=== PATIENT | male | born 1975 ===

== ENCOUNTER 2017-07-21 17:44 | Inpatient (IN) | payer OTHER ==
[2017-07-21] MEDS ORDERED: Albuterol-Ipratrop 3 mg / 0.5 (3 ml) UD IH STA ×2 (18:07)
[2017-07-21 18:25] LABS: BASO # 0.02 K/mm3 (0.0-2.0); BASO % 0.2 % (0.0-3.0); EOS # 0.9 (0.0-0.7); GRAN # 5.82 (1.4-6.5); GRAN % 54.7 % (50.0-68.0); HEMOGLOBIN 16.4 g/dL (14.0-18.0); LYMPH # 3.3 (1.2-3.4); LYMPH % 31.3 % (22.0-35.0); MEAN CELL VOLUME 85.1 fl (80.0-105.0); MEAN CORPUSCULAR HEMOGLOBIN 29.7 pg (25.0-35.0); MEAN CORPUSCULAR HGB CONC 34.9 g/dl (31.0-37.0); MEAN PLATELET VOLUME 9.8 fl (7.0-11.0); MONO # 0.6 (0.1-0.6); MONO % 5.8 % (1.0-6.0); RBC 5.52 10^6/uL (3.5-6.1); WHITE BLOOD COUNT 10.6 10^3/ul (4.5-11.0)
[2017-07-21 18:34] LABS: D DIMER < 200 ng/mL (0-243); INR 1.05 (0.93-1.08); PARTIAL THROMBOPLASTIN TIME 31.5 Seconds (25.1-36.5)
[2017-07-21 18:46] LABS: B-TYPE NATRIURETIC PEPTIDE 29.4 pg/mL (0-450); TROPONIN I < 0.01 ng/mL
[2017-07-21] MEDS ORDERED: Magnesium Sulfate 2 GM in Sodium Chloride 0.9% 100 ML IVPB ONE (18:49)
[2017-07-21 18:50] LABS: ALB/GLOB RATIO 1.3 (1.1-1.8); ALBUMIN 4.9 g/dL (3.0-4.8); ALT/SGPT 43 U/L (7-56); AST/SGOT 37 U/L (17-59); BLOOD UREA NITROGEN 18 mg/dL (7-21); CALCIUM 9.8 mg/dL (8.4-10.5); GFR AFRICAN-AMERICAN > 60; GFR NON-AFRICAN AMERICAN > 60
[2017-07-21] MEDS ORDERED: Albuterol 0.083% Inhal Sol (2.5 mg/3 mL) UD IH STA ×2 (18:53)
[2017-07-21] MEDS ORDERED: Iodixanol 320 mg/ml 150 ml Bottle IV ONE ×2 (19:26→19:38)
[2017-07-21 19:47] LABS: ARTERIAL BLOOD GAS HCO3 18.6 mmol/L (21-28); ARTERIAL BLOOD GAS O2 SAT 98.2 % (95-98); ARTERIAL BLOOD GAS PCO2 33 mm/Hg (35-45); ARTERIAL BLOOD GAS PH 7.36 (7.35-7.45); ARTERIAL BLOOD GAS TCO2 19.6 mmol.L (22-28)
--- NOTE | 2017-07-21 21:01 | CT ---
EXAM: CT Angiography Chest With Intravenous Contrast CLINICAL HISTORY: 42 years old, male; Signs and symptoms; Shortness of breath; Additional info: Sob/ cp TECHNIQUE: Axial computed tomographic angiography images of the chest with intravenous contrast using pulmonary embolism protocol. All CT scans at this facility use one or more dose reduction techniques, viz.: automated exposure control; ma/kV adjustment per patient size (including targeted exams where dose is matched to indication; i.e. head); or iterative reconstruction technique. MIP reconstructed images were created and reviewed. Coronal and sagittal reformatted images were created and reviewed. CONTRAST: 120 mL of VISIPAQUE administered intravenously. COMPARISON: DX - CHEST PORTABLE 2017-07-21 18:09 FINDINGS: Limitations: Motion artifact - mild to moderate. Suboptimal timing of bolus. Pulmonary arteries: No definite filling defects within main, lobar, segmental branches. Suboptimal evaluation of subsegmental branches. Aorta: No aneurysm. No dissection. Lungs: Minimal atelectasis/scarring. No consolidation. Few subpleural nodules and/or scarring, up to 0.4 cm. Pleural space: No significant effusion. No pneumothorax. Heart: No cardiomegaly. No significant pericardial effusion. Bones/joints: No acute fracture. Soft tissues: Unremarkable. Lymph nodes: No pathologically enlarged lymph nodes. Liver: Fatty infiltration. IMPRESSION: 1. No definite pulmonary embolism. 2. Pulmonary nodules. For low-risk patients, no follow-up is necessary. For high-risk patients (smoking history or other known risk factors) an optional CT at 12 months could be performed. 3. Incidental/non-acute findings are described above.
[2017-07-21] MEDS ORDERED: cefTRIAXone 1 gm 1 GM/100 ML BAG IVPB STA (21:16)
[2017-07-21] MEDS ORDERED: Azithromycin 500MG/NS 250ml 500 MG/250 ML BAG IVPB STA (21:16)
--- NOTE | 2017-07-21 21:57 | ED PDOC ---
Arrival/HPI - General Chief Complaint: Shortness Of Breath Time Seen by Provider: 07/21/17 18:05 Historian: Patient - History of Present Illness Narrative History of Present Illness (Text): 07/21/17 21:55 42-year-old male presents today with shortness of breath. Patient states 2 weeks ago he was sick with cold symptoms was seen by a doctor was given albuterol treatment and antibiotics. Patient states he was feeling much better and just went on vacation on a cruise that left from [facility]. Patient states for the past few days he's been having a dry cough and feeling congestion in the chest. Patient states today he suddenly became extremely short of breath. Patient denies fevers or chills. Denies sick contacts at home. Patient describes a slight pressure sensation in the chest with worsening shortness of breath. Patient denies vomiting or diarrhea. No dizziness or weakness. No neck or back pain. No other complaints Symptom Onset: Gradual Symptom Course: Worsening Severity Level: 2, 3 Past Medical History - Provider Review Nursing Documentation Reviewed: Yes - Travel History Have you recently traveled outside w/in the past 3 mons?: No - Infectious Disease Hx of Infectious Diseases: None - Psychiatric Hx Substance Use: No - Anesthesia Hx Anesthesia: No Hx Anesthesia Reactions: No Family/Social History - Physician Review Nursing Documentation Reviewed: Yes Family/Social History: Unknown Family HX Smoking Status: Unknown If Ever Smoked Hx Alcohol Use: No Hx Substance Use: No Allergies/Home Meds Allergies/Adverse Reactions: Allergies No Known Allergies Allergy (Verified 07/21/17 17:57) Home Medications: Home Meds Medication Instructions Recorded Confirmed No Known Home Med 07/21/17 07/21/17 Review of Systems - Review of Systems Constitutional: absent: Fatigue, Fevers Respiratory: SOB, Cough, Wheezing Cardiovascular: Chest Pain. absent: Palpitations Gastrointestinal: absent: Abdominal Pain, Nausea, Vomiting Genitourinary Male: absent: Dysuria Musculoskeletal: absent: Arthralgias, Neck Pain Skin: absent: Rash, Pruritis Neurological: absent: Headache, Dizziness Psychiatric: absent: Anxiety, Depression Physical Exam Vital Signs Reviewed: Yes Vital Signs Temp Pulse Resp BP Pulse Ox 07/21/17 21:17 109 H 18 118/97 H 92 L 07/21/17 18:00 24 07/21/17 17:59 98.8 F 110 H 20 158/99 H 98 Temperature: Afebrile Blood Pressure: Hypertensive Pulse: Tachycardic Respiratory Rate: Tachypneic Appearance: Positive for: Well-Appearing, Non-Toxic Pain Distress: None Mental Status: Positive for: Alert and Oriented X 3 - Systems Exam Head: Present: Atraumatic Mouth: Present: Moist Mucous Membranes Neck: Present: Trachea Midline Respiratory/Chest: Present: Good Air Exchange, Accessory Muscle Use, Wheezes, Retracting, Tachypneic. No: Clear to Auscultation, Respiratory Distress Cardiovascular: Present: Tachycardic. No: Murmurs Abdomen: No: Tenderness, Distention, Rebound, Guarding Upper Extremity: Present: Normal ROM Lower Extremity: Present: Normal ROM Neurological: Present: GCS=15 Skin: Present: Warm, Dry, Normal Color. No: Rashes Psychiatric: Present: Alert, Oriented x 3 Medical Decision Making ED Course and Treatment: 07/21/17 21:57 42-year-old male complaining of chest pain and shortness of breath Tachycardic tachypneic and hypoxic with diffuse wheezing bilaterally CBC within normal limits CMP within normal limits D-dimer within normal limits Troponin within normal limits EKG shows sinus tachycardia at [address] elevations normal axis normal intervals QTC 456 Chest x-ray shows no infiltrate or effusion no cardiomegaly Patient reassessment: After 3 DuoNeb treatments and 125 mg of Solu-Medrol patient is feeling better. Patient still with diffuse wheezing slight tachypnea with retracting and hypoxia. ABG pH 7.36 Lactate within normal limits CT chest angiography: FINDINGS: Limitations: Motion artifact - mild to moderate. Suboptimal timing of bolus. Pulmonary arteries: No definite filling defects within main, lobar, segmental branches. Suboptimal evaluation of subsegmental branches. Aorta: No aneurysm. No dissection. Lungs: Minimal atelectasis/scarring. No consolidation. Few subpleural nodules and/or scarring, up to 0.4 cm. Pleural space: No significant effusion. No pneumothorax. Heart: No cardiomegaly. No significant pericardial effusion. Bones/joints: No acute fracture. Soft tissues: Unremarkable. Lymph nodes: No pathologically enlarged lymph nodes. Liver: Fatty infiltration. IMPRESSION: 1. No definite pulmonary embolism. 2. Pulmonary nodules. For low-risk patients, no follow-up is necessary. For high-risk patients (smoking history or other known risk factors) an optional CT at 12 months could be performed. 3. Incidental/non-acute findings are described above. Patient reassessment: Patient given an additional 4 albuterol treatments, magnesium added. Patient feeling slightly better. Still with diffuse wheezing. Dry cough noted Patient was seen and evaluated by dr. justen pete flu added blood cultures pending zithromax and rocephin added IV. ASA added case discussed with dr. Horacio cruz; pt accepted to tele for hypoxia with bronchospasms. all aspects of this case were discussed the attending of record. impression; hypoxia, bronchospasms admit to tele. Reassessment Condition: Re-examined, Improving,but remains with symptoms - Lab Interpretations Lab Results: 07/21/17 17:55 07/21/17 18:06 Lab Results 07/21/17 19:35: pCO2 33 L, pO2 79.0 L, HCO3 18.6 L, ABG pH 7.36, ABG Total CO2 19.6 L, ABG O2 Saturation 98.2 H, ABG Base Excess -5.9 L, ABG Potassium 2.7 L, Glucose 109, Lactate 1.4, FiO2 21.0, Sodium 144.0, Chloride 114.0 H, Arterial Blood Potassium 2.7 L 07/21/17 18:06: Sodium 144, Potassium 4.0, Chloride 106, Carbon Dioxide 23, Anion Gap 19, BUN 18, Creatinine 0.9, Est GFR ( Amer) > 60, Est GFR (Non- Af Amer) > 60, Random Glucose 112 H, Calcium 9.8, Total Bilirubin 0.5, AST 37, ALT 43, Alkaline Phosphatase 69, Lactate Dehydrogenase 512, Total Creatine Kinase 127, Troponin I < 0.01, NT-Pro-B Natriuret Pep 29.4, Total Protein 8.8 H , Albumin 4.9 H, Globulin 3.9, Albumin/Globulin Ratio 1.3 07/21/17 18:06: PT 12.0, INR 1.05, APTT 31.5, D-Dimer, Quantitative < 200 07/21/17 17:55: WBC 10.6, RBC 5.52, Hgb 16.4, Hct 47.0, MCV 85.1, MCH 29.7, MCHC 34.9, RDW 13.0, Plt Count 380, MPV 9.8, Gran % 54.7, Lymph % (Auto) 31.3, [place] % (Auto) 5.8, Eos % (Auto) 8.0 H, Baso % (Auto) 0.2, Gran # 5.82, Lymph # ( Auto) 3.3, [place] # (Auto) 0.6, Eos # (Auto) 0.9 H, Baso # (Auto) 0.02 - RAD Interpretation Radiology Orders: 07/21/17 18:06 CHEST PORTABLE [RAD] Stat 07/21/17 18:57 ANGIO CHEST PE PROTOCOL [CT] Stat - Medication Orders Current Medication Orders: Azithromycin (Zithromax 500mg In Ns) 500 mg in 250 mls @ 167 mls/hr IVPB STAT STA PRN Reason: Protocol Stop: 07/21/17 22:45 Discontinued Medications Albuterol Sulfate (Albuterol 0.083% Inhal Ammy (2.5 Mg/3 Ml) Ud) 2.5 mg IH STAT STA Stop: 07/21/17 18:54 Last Admin: 07/21/17 19:04 Dose: 2.5 mg Albuterol Sulfate (Albuterol 0.083% Inhal Ammy (2.5 Mg/3 Ml) Ud) 2.5 mg IH STAT STA Stop: 07/21/17 18:54 Last Admin: 07/21/17 19:04 Dose: 2.5 mg Albuterol/Ipratropium (Duoneb 3 Mg/0.5 Mg (3 Ml) Ud) 3 ml IH STAT STA Stop: 07/21/17 18:08 Last Admin: 07/21/17 18:00 Dose: 3 ml Albuterol/Ipratropium (Duoneb 3 Mg/0.5 Mg (3 Ml) Ud) 3 ml IH STAT STA Stop: 07/21/17 18:08 Last Admin: 07/21/17 18:16 Dose: 3 ml Aspirin (Aspirin) 325 mg PO STAT STA Stop: 07/21/17 21:57 Magnesium Sulfate 2 gm/ Sodium (Chloride) 104 mls @ 102 mls/hr IVPB ONCE ONE Stop: 07/21/17 19:50 Last Admin: 07/21/17 19:23 Dose: 102 mls/hr eMAR Start Stop Document 07/21/17 19:23 IT (Rec: 04/29/18 19:27 IT [id number]) Intravenous Solution Start Date 07/21/17 Start Time 19:27 End Date 07/21/17 Ceftriaxone Sodium (Rocephin 1 Gram Ivpb) 1 gm in 100 mls @ 200 mls/hr IVPB STAT STA PRN Reason: Protocol Stop: 07/21/17 21:45 Methylprednisolone (Solu-Medrol) 125 mg IVP STAT STA Stop: 07/21/17 18:08 Last Admin: 07/21/17 18:16 Dose: 125 mg IVP Administration Document 07/21/17 18:16 EWO (Rec: 07/21/17 18:16 EWO [id number]) Charges for Administration # of IVP Administrations 1 Disposition/Present on Arrival - Present on Arrival Any Indicators Present on Arrival: No History of DVT/PE: No History of Uncontrolled Diabetes: No Urinary Catheter: No History of Decub. Ulcer: No History Surgical Site Infection Following: None - Disposition Have Diagnosis and Disposition been Completed?: Yes Diagnosis: Hypoxia, Bronchospasm Disposition: HOSPITALIZED Disposition Time: 21:54 Patient Plan: Admission Patient Problems: Current Active Problems Problem Status Onset Bronchospasm Acute Hypoxia Acute Condition: FAIR Referrals: Balaji Jacobson MD [Primary Care Provider] - Follow up with primary Forms: [employer] (German)
[2017-07-21] MEDS ORDERED: Levalbuterol 1.25 MG/3 ML Inhal Soln UD IH PRN (22:05)
[2017-07-21] MEDS: Levalbuterol 1.25 MG/3 ML Inhal Soln UD IH SCH (23:03)
[2017-07-21] MEDS: MethylPREDNISolone 40 mg Vial IVP SCH (23:04)
--- NOTE | 2017-07-21 23:34 | CP.PCM.HP ---
History of Present Illness - History of Present Illness History of Present Illness: Medicine H&P: Dr. Ramirez Chief Complaint: Shortness of breath HPI: 42 year old male with past medical history of asthma presents with shortness of breath for two weeks. Patient states that he went on a cruise a couple of weeks ago, and his symptoms started when they stopped in the [place]. He then had shortness of breath this past Saturday (7 days ago) and then symptoms today, at which point the shortness of breath was severe. He also had associated chills this morning (his opened the window, she thought it was warm, but he thought it was chilly). Patient denies any other symptoms. Review of Systems: 12 point ROS obtained and negative except as per HPI Surgical History: Patient denies Medical History: Asthma - never hospitalized, never intubated Allergies: NKDA; seasonal Social History: Denies alcohol, tobacco, illicits Home Meds: Albuterol - does not use often Family History: Non-contributory PMD: Dr. Jacobson Present on Admission - Present on Admission Any Indicators Present on Admission: No Past Patient History - Infectious Disease Hx of Infectious Diseases: None - Past Social History Smoking Status: Unknown If Ever Smoked - PSYCHIATRIC Hx Substance Use: No - ANESTHESIA Hx Anesthesia: No Hx Anesthesia Reactions: No Meds Allergies/Adverse Reactions: Allergies Allergy/AdvReac Type Severity Reaction Status Date / Time No Known Allergies Allergy Verified 07/21/17 17:57 Physical Exam - Constitutional Appears: Well - Head Exam Head Exam: ATRAUMATIC, NORMAL INSPECTION, NORMOCEPHALIC - Eye Exam Eye Exam: EOMI, Normal appearance, PERRL Pupil Exam: NORMAL ACCOMODATION, PERRL - ENT Exam ENT Exam: Mucous Membranes Moist, Normal Exam - Neck Exam Neck exam: Positive for: Normal Inspection - Respiratory Exam Respiratory Exam: NORMAL BREATHING PATTERN Additional comments: Diffuse wheezes bilaterally anterior and posterior - Cardiovascular Exam Cardiovascular Exam: REGULAR RHYTHM - GI/Abdominal Exam GI & Abdominal Exam: Normal Bowel Sounds, Soft. absent: Tenderness - Extremities Exam Extremities exam: Positive for: normal inspection - Back Exam Back exam: NORMAL INSPECTION - Neurological Exam Neurological exam: Alert, CN II-XII Intact, Normal Gait, Oriented x3, Reflexes Normal - Psychiatric Exam Psychiatric exam: Normal Affect, Normal Mood - Skin Skin Exam: Dry, Intact, Normal Color, Warm Results - Vital Signs Recent Vital Signs: Last Vital Signs Temp 98.8 F 07/21/17 17:59 Pulse 109 H 07/21/17 21:17 Resp 18 07/21/17 21:17 BP 118/97 H 07/21/17 21:17 Pulse Ox 92 L 07/21/17 21:17 - Labs Result Diagrams: 07/21/17 17:55 07/21/17 18:06 Labs: Laboratory Results - last 24 hr 07/21/17 21:44 Influenza Typ A,B (EIA) Negative for flu a/b Assessment & Plan - Assessment and Plan (Free Text) Assessment: 42 year old male with pertinent medical history of asthma presents with shortness of breath. Patient recieved 7 rounds of duonebs in the ED, but was still wheezing and tight on my exam. Patient did not have a white count or any other SIRS criteria and chest xray negative for acute process. 1 dose of mg sulfate, rocephin, and azithro each given in the ED. Patient does admit to seasonal allergies. Plan Shortness of breath likely 2/2 Asthma Exacerbation - Blood cultures - Xopenex PRN and RHONDA - NC 3L PRN - Solu-medrol - Claritin stat dose - At this time no need for antibiotics Seasonal Allergies - Claritin daily GI/DVT Prophylaxis - Protonix/SCD
[2017-07-22] MEDS: Levalbuterol 1.25 MG/3 ML Inhal Soln UD IH SCH ×6 (00:10→20:50)
[2017-07-22 05:56] VITALS: RESP 20
[2017-07-22] MEDS: Pantoprazole 40 mg EC Tab PO SCH (06:16)
[2017-07-22 07:34] LABS: GRAN # 7.2 (1.4-6.5); GRAN % 83.7 % (50.0-68.0); HEMOGLOBIN 14.9 g/dL (14.0-18.0); LYMPH # 1.3 (1.2-3.4); LYMPH % 14.7 % (22.0-35.0); MEAN CELL VOLUME 85.5 fl (80.0-105.0); MEAN CORPUSCULAR HEMOGLOBIN 29.2 pg (25.0-35.0); MEAN CORPUSCULAR HGB CONC 34.1 g/dl (31.0-37.0); MEAN PLATELET VOLUME 9.9 fl (7.0-11.0); MONO # 0.1 (0.1-0.6); MONO % 1.6 % (1.0-6.0); RBC 5.11 10^6/uL (3.5-6.1); RED CELL DISTRIBUTION WIDTH 13.3 % (11.5-14.5); WHITE BLOOD COUNT 8.6 10^3/ul (4.5-11.0)
[2017-07-22 07:56] LABS: ALB/GLOB RATIO 1.3 (1.1-1.8); ALBUMIN 4.6 g/dL (3.0-4.8); ALT/SGPT 32 U/L (7-56); AST/SGOT 29 U/L (17-59); BLOOD UREA NITROGEN 17 mg/dL (7-21); CALCIUM 9.7 mg/dL (8.4-10.5); GFR AFRICAN-AMERICAN > 60; GFR NON-AFRICAN AMERICAN > 60
--- NOTE | 2017-07-22 08:08 | RAD ---
HISTORY: chest pain/sob/cough COMPARISON: None. . FINDINGS: LUNGS: No active pulmonary disease. PLEURA: No significant pleural effusion identified, no pneumothorax apparent. CARDIOVASCULAR: Normal. OSSEOUS STRUCTURES: No significant abnormalities. VISUALIZED UPPER ABDOMEN: Normal. OTHER FINDINGS: None. IMPRESSION: No active disease.
[2017-07-22] MEDS: MethylPREDNISolone 40 mg Vial IVP SCH ×4 (09:09→23:28)
--- NOTE | 2017-07-22 11:41 | CP.PCM.PN ---
<Alfie Dorman - Last Filed: 07/22/17 11:34> Subjective - Date & Time of Evaluation Date of Evaluation: 07/22/17 Time of Evaluation: 11:34 - Subjective Subjective: Medicine Progress Note Pt seen and examined at bedside. No acute overnight events. Pt states that breathing is improved and was able to sleep, but still feels wheezy. Pt denies CP, SOB, n/v/d, abdominal pain, fever, chills, JOHNSON, or dizziness. Objective - Vital Signs/Intake and Output Vital Signs (last 24 hours): Temp Pulse Resp BP Pulse Ox 98 F 106 H 20 135/71 93 L 07/22/17 05:55 07/22/17 07:56 07/22/17 05:55 07/22/17 05:55 07/22/17 05:55 Intake and Output: 07/22/17 07/22/17 06:59 18:59 Intake Total 120 Balance 120 - Medications Medications: Current Medications Levalbuterol HCl (Xopenex) 1.25 mg IH [id number] REPLACED BY [facility] Last Admin: 07/22/17 11:11 Dose: 1.25 mg Levalbuterol HCl (Xopenex) 1.25 mg IH Q2H PRN PRN Reason: Allergy symptoms Last Admin: 07/22/17 06:16 Dose: 1.25 mg Loratadine (Claritin) 10 mg PO DAILY REPLACED BY [facility] Last Admin: 07/22/17 09:10 Dose: 10 mg Methylprednisolone (Solu-Medrol) 40 mg IVP Q6H REPLACED BY [facility] Last Admin: 07/22/17 11:13 Dose: 40 mg Pantoprazole Sodium (Protonix Ec Tab) 40 mg PO 0600 REPLACED BY [facility] Last Admin: 07/22/17 06:16 Dose: 40 mg - Labs Labs: 07/22/17 07:00 07/22/17 07:00 PT 12.0 SECONDS (9.4-12.5) 07/21/17 18:06 INR 1.05 (0.93-1.08) 07/21/17 18:06 APTT 31.5 Seconds (25.1-36.5) 07/21/17 18:06 - Constitutional Appears: No Acute Distress - Head Exam Head Exam: NORMAL INSPECTION - Eye Exam Eye Exam: Normal appearance - ENT Exam ENT Exam: Normal Exam - Neck Exam Neck Exam: Normal Inspection - Respiratory Exam Respiratory Exam: Wheezes (b/l). absent: Decreased Breath Sounds, Rales, Rhonchi, Respiratory Distress - Cardiovascular Exam Cardiovascular Exam: Tachycardia, REGULAR RHYTHM, +S1, +S2. absent: Gallop, Rubs, Murmur - GI/Abdominal Exam GI & Abdominal Exam: Soft. absent: Distended, Guarding, Tenderness, Rebound - Extremities Exam Extremities Exam: Normal Inspection - Neurological Exam Neurological Exam: Alert, Awake, CN II-XII Intact, Oriented x3 - Psychiatric Exam Psychiatric exam: Normal Affect, Normal Mood - Skin Skin Exam: Dry, Intact, Normal Color, Warm Assessment and Plan - Assessment and Plan (Free Text) Assessment: 42 year old male with PMH of asthma admitted for evaluation and treatment for asthma exacerbation. Plan: 1. Asthma Exacerbation - CXR negative - ABG WNL, lactate 1.4 - Flu negative - D-dimer negative - CTA negative for PE - F/u blood cultures - Xopenex PRN and RHONDA - NC 3L PRN - Solu-medrol 40 mg q6h 2. Seasonal Allergies - Claritin daily GI/DVT Prophylaxis - Protonix/SCD Pt seen and discussed in detail with Dr. Phan. Darius Dorman, PGY1 <Amanda Phan - Last Filed: 07/23/17 16:09> Objective - Vital Signs/Intake and Output Vital Signs (last 24 hours): Temp Pulse Resp BP Pulse Ox 97.9 F 88 20 134/89 98 07/23/17 13:55 07/23/17 13:55 07/23/17 13:55 07/23/17 13:55 07/23/17 13:55 - Labs Labs: 07/23/17 07:00 07/23/17 07:00 PT 12.0 SECONDS (9.4-12.5) 07/21/17 18:06 INR 1.05 (0.93-1.08) 07/21/17 18:06 APTT 31.5 Seconds (25.1-36.5) 07/21/17 18:06 Attending/Attestation - Attestation I have personally seen and examined this patient.: Yes I have fully participated in the care of the patient.: Yes I have reviewed all pertinent clinical information, including history, physical exam and plan: Yes Notes (Text): 07/23/17 16:07 attending note; Patient seen and examined with resident. Patient is a 42-year-old male with a history of asthma is admitted with acute allergic bronchitis/ Asthma exacerbation. currently treated with oxygen, DuoNeb, IV Solu-Medrol and Claritin. Possible seasonal allergy suspected. Needs outpatient allergy/pulmonary follow-up. Possible discharge home tomorrow.
[2017-07-23] MEDS: Levalbuterol 1.25 MG/3 ML Inhal Soln UD IH SCH ×4 (01:00→11:27)
[2017-07-23] MEDS: MethylPREDNISolone 40 mg Vial IVP SCH ×2 (05:04→09:55)
[2017-07-23] MEDS: Pantoprazole 40 mg EC Tab PO SCH (06:41)
[2017-07-23 07:35] LABS: GRAN # 15.18 (1.4-6.5); GRAN % 90.3 % (50.0-68.0); HEMOGLOBIN 14.5 g/dL (14.0-18.0); LYMPH # 1.1 (1.2-3.4); LYMPH % 6.3 % (22.0-35.0); MEAN CELL VOLUME 86.3 fl (80.0-105.0); MEAN CORPUSCULAR HEMOGLOBIN 29.3 pg (25.0-35.0); MONO # 0.6 (0.1-0.6); MONO % 3.4 % (1.0-6.0); PLATELET COUNT 336 10^3/uL (120.0-450.0); RBC 4.95 10^6/uL (3.5-6.1); RED CELL DISTRIBUTION WIDTH 13.2 % (11.5-14.5); WHITE BLOOD COUNT 16.8 10^3/ul (4.5-11.0)
[2017-07-23 07:47] LABS: ALB/GLOB RATIO 1.5 (1.1-1.8); ALBUMIN 4.4 g/dL (3.0-4.8); ALT/SGPT 43 U/L (7-56); AST/SGOT 28 U/L (17-59); BLOOD UREA NITROGEN 17 mg/dL (7-21); CALCIUM 9.3 mg/dL (8.4-10.5); GFR AFRICAN-AMERICAN > 60; GFR NON-AFRICAN AMERICAN > 60
[2017-07-23 08:20] LABS: LYMPHOCYTE 8 % (22.0-35.0); MONOCYTE 3 % (1.0-6.0); NEUTROPHIL 89 % (50.0-70.0)
[2017-07-23 08:21] LABS: PLATELET ESTIMATE NORMAL (NORMAL)
--- NOTE | 2017-07-23 09:51 | CP.PCM.DIS ---
<Alfie Dorman - Last Filed: 07/23/17 11:48> Provider - Provider Date of Admission: 07/21/17 21:28 Attending physician: Amanda Phan MD Primary care physician: Balaji Jacobson MD Time Spent in preparation of Discharge (in minutes): 45 Hospital Course - Lab Results Lab Results: Micro Results 07/21/17 22:00 Blood Blood Culture - Preliminary NO GROWTH AFTER 24 HOURS 07/21/17 21:30 Blood Blood Culture - Preliminary NO GROWTH AFTER 24 HOURS Most Recent Lab Values WBC 16.8 10^3/ul (4.5-11.0) H D 07/23/17 07:00 RBC 4.95 10^6/uL (3.5-6.1) 07/23/17 07:00 Hgb 14.5 g/dL (14.0-18.0) 07/23/17 07:00 Hct 42.7 % (42.0-52.0) 07/23/17 07:00 MCV 86.3 fl (80.0-105.0) 07/23/17 07:00 MCH 29.3 pg (25.0-35.0) 07/23/17 07:00 MCHC 34.0 g/dl (31.0-37.0) 07/23/17 07:00 RDW 13.2 % (11.5-14.5) 07/23/17 07:00 Plt Count 336 10^3/uL (120.0-450.0) 07/23/17 07:00 MPV 10.0 fl (7.0-11.0) 07/23/17 07:00 Gran % 90.3 % (50.0-68.0) H 07/23/17 07:00 Lymph % (Auto) 6.3 % (22.0-35.0) L 07/23/17 07:00 Ross % (Auto) 3.4 % (1.0-6.0) 07/23/17 07:00 Eos % (Auto) 0.0 % (1.5-5.0) L 07/23/17 07:00 Baso % (Auto) 0.0 % (0.0-3.0) 07/23/17 07:00 Gran # 15.18 (1.4-6.5) H 07/23/17 07:00 Lymph # (Auto) 1.1 (1.2-3.4) L 07/23/17 07:00 Ross # (Auto) 0.6 (0.1-0.6) 07/23/17 07:00 Eos # (Auto) 0.0 (0.0-0.7) 07/23/17 07:00 Baso # (Auto) 0.00 K/mm3 (0.0-2.0) 07/23/17 07:00 Neutrophils % (Manual) 89 % (50.0-70.0) H 07/23/17 07:00 Lymphocytes % (Manual) 8 % (22.0-35.0) L 07/23/17 07:00 Monocytes % (Manual) 3 % (1.0-6.0) 07/23/17 07:00 Platelet Evaluation Normal (NORMAL) 07/23/17 07:00 PT 12.0 SECONDS (9.4-12.5) 07/21/17 18:06 INR 1.05 (0.93-1.08) 07/21/17 18:06 APTT 31.5 Seconds (25.1-36.5) 07/21/17 18:06 D-Dimer, Quantitative < 200 ng/mL (0-243) 07/21/17 18:06 pCO2 33 mm/Hg (35-45) L 07/21/17 19:35 pO2 79.0 mm/Hg (80-100) L 07/21/17 19:35 HCO3 18.6 mmol/L (21-28) L 07/21/17 19:35 ABG pH 7.36 (7.35-7.45) 07/21/17 19:35 ABG Total CO2 19.6 mmol.L (22-28) L 07/21/17 19:35 ABG O2 Saturation 98.2 % (95-98) H 07/21/17 19:35 ABG Base Excess -5.9 mmol/L (-2.0-3.0) L 07/21/17 19:35 ABG Potassium 2.7 mmol/L (3.6-5.2) L 07/21/17 19:35 Sodium 144.0 mmol/L (132-148) 07/21/17 19:35 Chloride 114.0 mmol/L (98-107) H 07/21/17 19:35 Glucose 109 mg/dl (75-110) 07/21/17 19:35 Lactate 1.4 mmol/L (0.7-2.1) 07/21/17 19:35 FiO2 21.0 % 07/21/17 19:35 Sodium 139 mmol/L (132-148) 07/23/17 07:00 Potassium 4.0 mmol/L (3.6-5.0) 07/23/17 07:00 Chloride 104 mmol/L (98-107) 07/23/17 07:00 Carbon Dioxide 24 mmol/L (21-33) 07/23/17 07:00 Anion Gap 16 (10-20) 07/23/17 07:00 BUN 17 mg/dL (7-21) 07/23/17 07:00 Creatinine 0.8 mg/dl (0.8-1.5) 07/23/17 07:00 Est GFR ( Amer) > 60 07/23/17 07:00 Est GFR (Non-Af Amer) > 60 07/23/17 07:00 Random Glucose 142 mg/dL (70-110) H 07/23/17 07:00 Calcium 9.3 mg/dL (8.4-10.5) 07/23/17 07:00 Phosphorus 4.5 mg/dL (2.5-4.5) 07/22/17 07:00 Magnesium 2.1 mg/dL (1.7-2.2) 07/22/17 07:00 Total Bilirubin 0.3 mg/dL (0.2-1.3) 07/23/17 07:00 AST 28 U/L (17-59) 07/23/17 07:00 ALT 43 U/L (7-56) 07/23/17 07:00 Alkaline Phosphatase 59 U/L (38-126) 07/23/17 07:00 Lactate Dehydrogenase 512 U/L (333-699) 07/21/17 18:06 Total Creatine Kinase 127 U/L (35-230) 07/21/17 18:06 Troponin I < 0.01 ng/mL 07/21/17 18:06 NT-Pro-B Natriuret Pep 29.4 pg/mL (0-450) 07/21/17 18:06 Total Protein 7.5 g/dL (5.8-8.3) 07/23/17 07:00 Albumin 4.4 g/dL (3.0-4.8) 07/23/17 07:00 Globulin 3.0 gm/dL 07/23/17 07:00 Albumin/Globulin Ratio 1.5 (1.1-1.8) 07/23/17 07:00 Arterial Blood Potassium 2.7 mmol/L (3.6-5.2) L 07/21/17 19:35 Influenza Typ A,B (EIA) Negative for flu a/b (NEGATIVE) 07/21/17 21:44 - Hospital Course Hospital Course: 42 year old male with past medical history of asthma presented with shortness of breath for two weeks. Patient went on a cruise a couple of weeks prior to admission, where his symptoms started. Patient was seen by his PMD who gave him inhalers and PO abx. Patient states that it helped somewhat, but before admission became severe enough for him to seek evaluation in the ED. Patient stated that he has had a few instances of intermittent symptoms for the last couple of years. However, symptoms are rare and on average he has less than 1 episode of dyspnea per week and only 1 night time symptom over the last few years. In the ED, CXR was negative, D-dimer was negative, CTA of chest was negative for PE, and flu was negative. Patient was admitted for asthma exacerbation. Patient was placed on tapering dose of IV steroids and nebulized treatments. Blood cultures were negative. Today, patient was seen and examined at bedside. No acute overnight events. Patients stated that his shortness of breath and wheezing were much approved. Patient denied any night time symptoms. Patient states that he was not symptomatic when ambulating with PT. As patient was medically stable, he was discharged. Patient was given prescriptions for medications and will follow up with Dr. Villareal outpatient. Discharge Diagnosis - Asthma Exacerbation Discharge Exam - Head Exam Head Exam: NORMAL INSPECTION - Eye Exam Eye Exam: Normal appearance - ENT Exam ENT Exam: Normal Exam - Respiratory Exam Respiratory Exam: Wheezes. absent: Decreased Breath Sounds, Rales, Rhonchi, Respiratory Distress - Cardiovascular Exam Cardiovascular Exam: RRR, +S1, +S2. absent: Diastolic murmur, Gallop, Rubs, Systolic Murmur - GI/Abdominal Exam GI & Abdominal Exam: Soft. absent: Distended, Guarding, Rebound, Tenderness - Extremities Exam Extremities exam: normal inspection - Neurological Exam Neurological exam: Alert, CN II-XII Intact, Oriented x3 - Psychiatric Exam Psychiatric exam: Normal Affect, Normal Mood - Skin Skin Exam: Dry, Intact, Normal Color, Warm Discharge Plan - Discharge Medications Prescriptions: Fluticasone/Salmeterol 250/50 [Advair Diskus] 1 puff IH Q12 #1 inh Levofloxacin [Levaquin] 500 mg PO DAILY #5 tablet Methylprednisolone [Medrol Dose Pack (21 tabs)] See Taper PO DAILY #21 mg guaiFENesin [Robitussin] 200 mg PO Q6H PRN #1 bottle PRN Reason: Cough Albuterol Sulfate [Ventolin Hfa] 1 puff IH PRN PRN #1 inh PRN Reason: Shortness Of Breath - Follow Up Plan Condition: FAIR Disposition: HOME/ ROUTINE Instructions: Asthma, Adult (DC) Additional Instructions: You are being discharged to home. 1. Follow up with PMD within 1 week 2. Take medications as prescribed 3. Return to ED if symptoms worsen Referrals: Balaji Jacobson MD [Primary Care Provider] - <Amanda Phan - Last Filed: 07/23/17 16:10> Provider - Provider Date of Admission: 07/21/17 21:28 Attending physician: Amanda Phan MD Primary care physician: Balaji Jacobson MD Hospital Course - Lab Results Lab Results: Micro Results 07/21/17 22:00 Blood Blood Culture - Preliminary NO GROWTH AFTER 24 HOURS 07/21/17 21:30 Blood Blood Culture - Preliminary NO GROWTH AFTER 24 HOURS Most Recent Lab Values WBC 16.8 10^3/ul (4.5-11.0) H D 07/23/17 07:00 RBC 4.95 10^6/uL (3.5-6.1) 07/23/17 07:00 Hgb 14.5 g/dL (14.0-18.0) 07/23/17 07:00 Hct 42.7 % (42.0-52.0) 07/23/17 07:00 MCV 86.3 fl (80.0-105.0) 07/23/17 07:00 MCH 29.3 pg (25.0-35.0) 07/23/17 07:00 MCHC 34.0 g/dl (31.0-37.0) 07/23/17 07:00 RDW 13.2 % (11.5-14.5) 07/23/17 07:00 Plt Count 336 10^3/uL (120.0-450.0) 07/23/17 07:00 MPV 10.0 fl (7.0-11.0) 07/23/17 07:00 Gran % 90.3 % (50.0-68.0) H 07/23/17 07:00 Lymph % (Auto) 6.3 % (22.0-35.0) L 07/23/17 07:00 Ross % (Auto) 3.4 % (1.0-6.0) 07/23/17 07:00 Eos % (Auto) 0.0 % (1.5-5.0) L 07/23/17 07:00 Baso % (Auto) 0.0 % (0.0-3.0) 07/23/17 07:00 Gran # 15.18 (1.4-6.5) H 07/23/17 07:00 Lymph # (Auto) 1.1 (1.2-3.4) L 07/23/17 07:00 Ross # (Auto) 0.6 (0.1-0.6) 07/23/17 07:00 Eos # (Auto) 0.0 (0.0-0.7) 07/23/17 07:00 Baso # (Auto) 0.00 K/mm3 (0.0-2.0) 07/23/17 07:00 Neutrophils % (Manual) 89 % (50.0-70.0) H 07/23/17 07:00 Lymphocytes % (Manual) 8 % (22.0-35.0) L 07/23/17 07:00 Monocytes % (Manual) 3 % (1.0-6.0) 07/23/17 07:00 Platelet Evaluation Normal (NORMAL) 07/23/17 07:00 PT 12.0 SECONDS (9.4-12.5) 07/21/17 18:06 INR 1.05 (0.93-1.08) 07/21/17 18:06 APTT 31.5 Seconds (25.1-36.5) 07/21/17 18:06 D-Dimer, Quantitative < 200 ng/mL (0-243) 07/21/17 18:06 pCO2 33 mm/Hg (35-45) L 07/21/17 19:35 pO2 79.0 mm/Hg (80-100) L 07/21/17 19:35 HCO3 18.6 mmol/L (21-28) L 07/21/17 19:35 ABG pH 7.36 (7.35-7.45) 07/21/17 19:35 ABG Total CO2 19.6 mmol.L (22-28) L 07/21/17 19:35 ABG O2 Saturation 98.2 % (95-98) H 07/21/17 19:35 ABG Base Excess -5.9 mmol/L (-2.0-3.0) L 07/21/17 19:35 ABG Potassium 2.7 mmol/L (3.6-5.2) L 07/21/17 19:35 Sodium 144.0 mmol/L (132-148) 07/21/17 19:35 Chloride 114.0 mmol/L (98-107) H 07/21/17 19:35 Glucose 109 mg/dl (75-110) 07/21/17 19:35 Lactate 1.4 mmol/L (0.7-2.1) 07/21/17 19:35 FiO2 21.0 % 07/21/17 19:35 Sodium 139 mmol/L (132-148) 07/23/17 07:00 Potassium 4.0 mmol/L (3.6-5.0) 07/23/17 07:00 Chloride 104 mmol/L (98-107) 07/23/17 07:00 Carbon Dioxide 24 mmol/L (21-33) 07/23/17 07:00 Anion Gap 16 (10-20) 07/23/17 07:00 BUN 17 mg/dL (7-21) 07/23/17 07:00 Creatinine 0.8 mg/dl (0.8-1.5) 07/23/17 07:00 Est GFR ( Amer) > 60 07/23/17 07:00 Est GFR (Non-Af Amer) > 60 07/23/17 07:00 Random Glucose 142 mg/dL (70-110) H 07/23/17 07:00 Calcium 9.3 mg/dL (8.4-10.5) 07/23/17 07:00 Phosphorus 4.5 mg/dL (2.5-4.5) 07/22/17 07:00 Magnesium 2.1 mg/dL (1.7-2.2) 07/22/17 07:00 Total Bilirubin 0.3 mg/dL (0.2-1.3) 07/23/17 07:00 AST 28 U/L (17-59) 07/23/17 07:00 ALT 43 U/L (7-56) 07/23/17 07:00 Alkaline Phosphatase 59 U/L (38-126) 07/23/17 07:00 Lactate Dehydrogenase 512 U/L (333-699) 07/21/17 18:06 Total Creatine Kinase 127 U/L (35-230) 07/21/17 18:06 Troponin I < 0.01 ng/mL 07/21/17 18:06 NT-Pro-B Natriuret Pep 29.4 pg/mL (0-450) 07/21/17 18:06 Total Protein 7.5 g/dL (5.8-8.3) 07/23/17 07:00 Albumin 4.4 g/dL (3.0-4.8) 07/23/17 07:00 Globulin 3.0 gm/dL 07/23/17 07:00 Albumin/Globulin Ratio 1.5 (1.1-1.8) 07/23/17 07:00 Arterial Blood Potassium 2.7 mmol/L (3.6-5.2) L 07/21/17 19:35 Influenza Typ A,B (EIA) Negative for flu a/b (NEGATIVE) 07/21/17 21:44 Attending/Attestation - Attestation I have personally seen and examined this patient.: Yes I have fully participated in the care of the patient.: Yes I have reviewed all pertinent clinical information, including history, physical exam and plan: Yes Notes (Text): 07/23/17 16:09 attending note; Patient seen and examined with resident. Patient is a 42-year-old male with a history of asthma is admitted with acute allergic bronchitis/ Asthma exacerbation. treated with oxygen, DuoNeb, IV Solu-Medrol and Claritin. Possible seasonal allergy suspected. Needs outpatient allergy/pulmonary follow-up. patient is clinically stable. Bruising is improved. discharge home today. Patient follows up with PMD Dr. Jacobson. Information about [facility] clinic also given. The patient will complete [facility] paperwork.
[2017-07-23 13:57] VITALS: BP 134/89; PULSE 88; TEMP 97.9; O2SAT 98
== END 2017-07-23 14:05 | disposition home or self-care (01) | DRG 96 ==
LOC: EDBD → ED 17:44 → ERH 21:28 → 2RSO 07-22 00:44 → 5RSO 07-22 12:42
PROVIDERS: ADMIT Internal Medicine; ATTEND Internal Medicine
PROC: 3E0F7GC Introduction of Other Therapeutic Substance into Respiratory Tract, Via Natural or Artificial Opening (ICD-10-PCS; principal; 2017-07-22)
DX: J45.901 Unspecified asthma with (acute) exacerbation (principal); R09.02 Hypoxemia